=== PATIENT | female | born 1980 | race Two or more races ===

== ENCOUNTER 2017-03-22 20:51 | Emergency (ER) | payer OTHER ==
[~2017-03-22] VITALS: Ht 172.7 cm; Wt 136.1 kg
[~2017-03-22 20:51] MED LIST: NKM
[2017-03-22 21:00] VITALS: BP 125/76
[2017-03-22] MEDS ORDERED: Norco 5mg/325mg tab ORAL ONE (21:15)
[2017-03-22] MEDS ORDERED: IBUPROFEN600 MG ORAL (21:37)
--- NOTE | 2017-03-22 21:37 | Emergency Room Report ---
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 She presents with chief complaint of left ankle pain. She was getting supplies out of the door and she used her left foot to push the door back in. It came out in hit her on the ankle, causing her to fall. She complaining of left ankle pain but mostly over the Achilles. Pain recur cath. Pain is 9/10. No other injury. Did not pass out. Allergies: Coded Allergies: ASPIRIN (Verified Allergy, Unknown, 03/22/17) Patient History Past Medical History: see triage record, old chart reviewed Past Surgical History: none Pertinent Family History: none Social History: Denies: smoking Last Menstrual Period: Mar Now: No Immunizations: other Reviewed Nursing Documentation: PMH: Agreed, PSxH: Agreed Nursing Documentation-PM Past Medical History: No Stated History Review of Systems Eye: Denies: eye pain, blurred vision ENT: Denies: ear pain, nose congestion, throat swelling Respiratory: Denies: cough, shortness of breath Cardiovascular: Denies: chest pain, palpitations Gastrointestinal: Denies: abdominal pain, diarrhea, nausea, vomiting Musculoskeletal: Reports: joint pain, muscle pain Skin: Denies: rash Neurological: Denies: headache, numbness Endocrine: Denies: increased thirst, increased urine Hematologic/Lymphatic: Denies: easy bruising All Other Systems: negative except mentioned in HPI Physical Exam Vital Signs Date Time Temp Pulse Resp B/P (MAP) Pulse Ox O2 Delivery O2 Flow Rate FiO2 03/22/17 20:45 98.2 79 16 120/79 98 Room Air vitals normal Sp02 EP Interpretation: reviewed, normal General Appearance: well appearing, no apparent distress, alert Head: normocephalic, atraumatic Eyes: bilateral eye PERRL, bilateral eye EOMI ENT: hearing grossly normal, normal pharynx Neck: full range of motion, supple, no meningismus Respiratory: chest non-tender, lungs clear, normal breath sounds Cardiovascular #1: regular rate, rhythm, no murmur Gastrointestinal: normal bowel sounds, non tender, no mass, no organomegaly, no bruit, non-distended Musculoskeletal: back normal, normal range of motion, other - Left ankle: No pain over the malleoli. She has tenderness over the Achilles tendon. No laxity however. No deformity. Pulses normal. Sensation normal. Psychiatric: mood/affect normal Skin: warm/dry Procedures Splinting Splinting : Consent: Verbal Location: Left ankle Hand-Made Type: plaster Splint: poserior short Pre-Proc Neuro Vasc Exam: normal Post-Proc Neuro Vasc Exam: normal Patient Tolerated: Well Complications: None Medical Decision Making Diagnostic Impression: Primary Impression: Strain of left Achilles tendon, initial encounter ER Course Patient presents with injury to her ankle and Achilles tendon. Clinically no evidence of rupture or tear. Most likely just a bruise/contusion. We'll splint and give her crutches. Other X-Ray Diagnostic Results Other X-Ray Diagnostic Results : X-Ray ordered: left ankle # of Views/Limited Vs Complete: 3 View Indication: Pain EP Interpretation: Yes Interpretation: no dislocation, no soft tissue swelling, no fractures Impression: No acute disease Interpreting ER Provider: Electronically signed by Moe Darnell MD Last Vital Signs Date Time Temp Pulse Resp B/P (MAP) Pulse Ox O2 Delivery O2 Flow Rate FiO2 03/22/17 20:45 98.2 79 16 120/79 98 Room Air Status: improved Disposition: HOME, SELF-CARE Condition: Stable Scripts Ibuprofen* (MOTRIN*) 600 Mg Tablet 600 MG ORAL Q6H Y for For Pain, #30 TAB Prov: MOE DARNELL M.D. 03/22/17 Patient Instructions: Ankle Sprain Additional Instructions: Followup with Worker's Comp. 2-3 days. Use crutches. Elevate leg. Return if symptom worsen. MOE DARNELL M.D. Mar 22, 2017 21:37
[2017-03-22 22:30] VITALS: BP 127/81
[2017-03-22 22:35] VITALS: BP 127/81
--- NOTE | 2017-03-23 10:07 | Diagnostic Imaging Report ---
Indication: TRAUMA Technique: 3 views of the left ankle Comparison: none Findings: There are plantar and calcaneal spurs. No acute fractures. No dislocations. Joint spaces are preserved. Impression: No acute bony trauma
== END 2017-03-22 23:25 | disposition home or self-care (01) ==
LOC: EDBD 20:51 → EMR 21:05
DX: S86.012A Strain of left Achilles tendon, initial encounter (principal); W19.XXXA Unspecified fall, initial encounter; Y92.511 Restaurant or cafe as the place of occurrence of the external cause; Y99.0 Civilian activity done for income or pay
CPT/HCPCS: 29515; 99283